=== PATIENT | male | born 1950 | race Caucasian/White ===

== ENCOUNTER → 2016-10-11 | Outpatient (CLI) | payer OTHER | LOC: CAT 08:50 | DX: Z13.6 Encounter for screening for cardiovascular disorders (principal) ==

== ENCOUNTER → 2018-12-11 | Outpatient (CLI) | payer OTHER | LOC: CAT 13:36 | DX: Z13.6 Encounter for screening for cardiovascular disorders (principal); E78.00 Pure hypercholesterolemia, unspecified; I25.10 Atherosclerotic heart disease of native coronary artery without angina pectoris ==

== ENCOUNTER → 2019-10-01 | Outpatient (CLI) | payer OTHER, BC | LOC: SJCVC 11:59 | PROVIDERS: ATTEND Internal Medicine Cardiovascular Disease | DX: R93.1 Abnormal findings on diagnostic imaging of heart and coronary circulation (principal); E78.00 Pure hypercholesterolemia, unspecified; Z79.899 Other long term (current) drug therapy; Z82.49 Family history of ischemic heart disease and other diseases of the circulatory system ==

== ENCOUNTER → 2020-07-29 | Outpatient (CLI) | payer OTHER | LOC: SJCVCIMAG 09:29 | PROVIDERS: ATTEND Internal Medicine Cardiovascular Disease | DX: E78.5 Hyperlipidemia, unspecified (principal); R93.1 Abnormal findings on diagnostic imaging of heart and coronary circulation; Z79.899 Other long term (current) drug therapy ==